=== PATIENT | female | born 1980 | race Caucasian/White ===

== ENCOUNTER 2020-12-19 12:08 | Emergency (ER) | payer OTHER ==
[~2020-12-19] VITALS: Ht 160 cm; Wt 68.0 kg
[~2020-12-19 12:08] MED LIST: KEFLEX500 MG PO; PAXIL
[2020-12-19] MEDS ORDERED: TESSALON PERLE100 MG PO (13:36)
[2020-12-19 14:29] VITALS: BP 113/71
== END 2020-12-19 14:32 | disposition home or self-care (01) ==
LOC: ER 12:08
DX: R05 Cough (principal); Z20.822 Contact with and (suspected) exposure to COVID-19; R53.83 Other fatigue; R07.89 Other chest pain; R50.9 Fever, unspecified; Z98.890 Other specified postprocedural states; Z88.7 Allergy status to serum and vaccine